=== PATIENT | male | born 1940 | race Caucasian/White ===

== ENCOUNTER → 2023-12-27 10:53 | Outpatient (CLI) | payer MEDICARE, OTHER, SELFPAY | LOC: RESP 10:54 | PROVIDERS: Referring Provider Internal Medicine Critical Care Medicine; Visit Provider Internal Medicine Critical Care Medicine | DX: J44.9 Chronic obstructive pulmonary disease, unspecified (principal) | CPT/HCPCS: 94060; 94726; 94729 ==